=== PATIENT | female | born 1980 | race Caucasian/White ===

== ENCOUNTER 2024-10-03 15:31 | Emergency (ER) | payer OTHER ==
[~2024-10-03] VITALS: Ht 172.7 cm; Wt 79.8 kg
[2024-10-03] MEDS ORDERED: PARO20 PO (15:37)
[2024-10-03] MEDS ORDERED: QUET300 PO (15:37)
[2024-10-03] MEDS ORDERED: CLON.5 PO (15:38)
[2024-10-03] MEDS ORDERED: LAMO100 PO (15:38)
[2024-10-03] MEDS ORDERED: VENL75ER PO (15:38)
[2024-10-03 16:10] LABS: BASOPHILS ABSOLUTE AUTO 0.06 K/mm3 (0.00-0.23); BASOPHILS PERCENT AUTO 1 % (0-2); EOSINOPHILS ABSOLUTE AUTO 0.32 K/mm3 (0.00-0.68); EOSINOPHILS PERCENT AUTO 4 % (0-6); Hematocrit 32.5 % (33.0-51.0); Hemoglobin 10.9 g/dL (11.5-16.0); IMMATURE GRAN ABSOLUTE AUTO 0.02 K/mm3 (0.00-0.10); IMMATURE GRAN PERCENT AUTO 0 % (0-1); LYMPHOCYTES PERCENT AUTO 24 % (21-46); MONOCYTES ABSOLUTE AUTO 0.47 K/mm3 (0.16-1.47); MONOCYTES PERCENT AUTO 6 % (4-13); Mean Corpuscular HGB 31.1 pg (26.0-34.0); Mean Corpuscular HGB Conc 33.5 g/dL (31.5-36.5); Mean Corpuscular Volume 93 fL (80-100); Mean Platelet Volume 9.8 fL (9.1-12.4); NEUTROPHILS PERCENT AUTO 65 % (41-73); Platelet Count 317 K/mm3 (150-400); RDW Coefficient Variation 11.8 % (11.7-14.2); RDW Standard Deviation 40.3 fL (35.1-46.3); White Blood Cell Count 7.57 K/mm3 (4.00-11.30)
[2024-10-03] MEDS ORDERED: NS 1,000 ML IV SCH (16:15)
[2024-10-03 16:22] LABS: Albumin, Blood 3.2 g/dL (3.4-5.0); Bilirubin, Total 0.2 mg/dL (0.1-1.0); Bun/Creatinine Ratio 29.6 (12.0-20.0); Creatinine, Blood 0.64 mg/dL (0.40-1.00); Globulin, Blood 3.1 g/dL (2.2-4.0); Potassium, Blood 3.4 mmol/L (3.5-5.5); Total Protein, Blood 6.3 g/dL (6.4-8.2)
[2024-10-03 18:48] LABS: Source, Urine Clean Catch
[2024-10-03 19:04] LABS: Appearance, Urine Clear (Clear); Bilirubin, Urine Neg (Neg); Blood, Urine 1+ (Neg); Color, Urine Yellow (P-Yellow); Glucose Qualitative, Urine Neg (Neg); Ketones, Urine Neg (Neg); Leukocyte Esterase, Urine 2+ (Neg); Nitrite, Urine Pos (Neg); Protein, Urine 2+ (Neg); Urobilinogen, Urine 1+ (Normal)
[2024-10-03 19:07] LABS: Bacteria Many /hpf; Red Blood Cells, Urine 0-2 /hpf (0-2); Squamous Epithelial Cells Mod /hpf (Few)
[2024-10-04] MEDS ORDERED: SULTRIDS PO (00:35)
== END 2024-10-03 18:55 | disposition home or self-care (01) ==
LOC: ER 15:31
PROVIDERS: Student in an Organized Health Care Education/Training Program
DX: N81.10 Cystocele, unspecified (principal); N39.0 Urinary tract infection, site not specified; F17.210 Nicotine dependence, cigarettes, uncomplicated; Z79.899 Other long term (current) drug therapy; Z88.0 Allergy status to penicillin; Z88.6 Allergy status to analgesic agent; Z88.5 Allergy status to narcotic agent
CPT/HCPCS: 80053; 81001; 84702; 85025; 85730; 86850; 86900; 86901; 87086; 99283; J7030